=== PATIENT | male | born 1980 | race Caucasian/White ===

== ENCOUNTER 2019-02-14 13:56 | Emergency (ER) | payer MEDICAID ==
[~2019-02-14] VITALS: Ht 170.2 cm; Wt 61.2 kg
[2019-02-14 14:00] VITALS: BP_SYST 114
--- NOTE | 2019-02-14 14:00 | NUR ---
BROUGHT BACK TO BED #3 VIA WHEELCHAIR, PLACED IN BED AND TRIAGED. REPORT GIVEN TO MO
--- NOTE | 2019-02-14 14:13 | NUR ---
pt arrived from home w/ c/o right big toe pain. pt was skate boarding, fell, and smashed his right foot on concrete.
--- NOTE | 2019-02-14 14:20 | NUR ---
ER at bedside examining patient.
--- NOTE | 2019-02-14 14:35 | NUR ---
Dr. Gomez is at the bedside reducing the pt's right big toe.
[2019-02-14] MEDS ORDERED: LIDOCAINE 1%, 20 ML MDV 20 ML ONE (15:04)
--- NOTE | 2019-02-14 15:30 | NUR ---
pt reports feeling better
[2019-02-14 16:05] VITALS: BP_SYST 114
--- NOTE | 2019-02-14 16:05 | NUR ---
Patient given written and verbal discharge instructions and verbalizes understanding. ER MD discussed with patient the results and treatment provided. Patient in stable condition. ID arm band removed. Patient educated on pain management and to follow up with PMD. Pain Scale 3/10. Opportunity for questions provided and answered. Medication side effect fact sheet provided.
== END 2019-02-14 16:05 | disposition home or self-care (01) ==
LOC: SED 13:56
DX: S93.111A Dislocation of interphalangeal joint of right great toe, initial encounter (principal); V00.131A Fall from skateboard, initial encounter; Y93.51 Activity, roller skating (inline) and skateboarding; Y92.89 Other specified places as the place of occurrence of the external cause; Y99.8 Other external cause status
CPT/HCPCS: 28660; 73630; 73660; 99284; J2001